=== PATIENT | female | born 1970 | race Caucasian/White ===

== ENCOUNTER 2022-09-23 12:15 | Emergency (ER) | payer OTHER, SELFPAY ==
[2022-09-23] VITALS (8 sets, daily range): BP systolic 118–130; BP diastolic 78–88; PULSE 86–104; RESP 13–20; TEMP 36.6; O2SAT 100
--- NOTE | ~2022-09-23 | CT_ITS ---
CT of the Abdomen and Pelvis: Indication: Abdominal pain Technique: 2.5 mm axial scans were obtained through the abdomen and pelvis following intravenous adm inistration of 100 cc of Omnipaque 350. Dose reduction technique was used on this scan by utilizing a utomated exposure control and iterative reconstruction technique. The dose-length product (DLP) was 9 37.03 mGy-cm. Findings: Scans through the lung bases are unremarkable. The liver, spleen, pancreas, gallbladder, adrenals and kidneys are within normal limits. No evidence of aortic aneurysm. No lymphadenopathy. There is wall thickening and pericolonic inflammatory stranding at the mid descending colon, consiste nt with acute diverticulitis. No abscess or free air. No bowel obstruction. Very small fat-containing umbilical hernia noted. Images through the pelvis were performed. Urinary bladder unremarkable. No pelvic mass seen. Small am ount of ascites. Impression: Acute diverticulitis of the mid descending colon. No abscess or free air. Reviewed, dictated and finalized at [facility]. Impression: Acute diverticulitis of the mid descending colon. No abscess or free air.
[2022-09-23 12:46] LABS: Basophils Absolute Auto 0.1 K/mm3 (0.0-0.1); Basophils Percent Auto 0.4 % (0.2-1.2); Eosinophils Absolute Auto 0.3 K/mm3 (0-0.3); Eosinophils Percent Auto 2.2 % (0-4.4); Hematocrit 42.6 % (37.0-47.0); Hemoglobin 14.4 g/dL (12.0-15.0); Immature Granulocyte Absolute 0.08 K/mm3 (0.00-0.031); Immature Granulocyte Percent A 0.6 % (0-0.5); Lymphocytes Absolute Auto 1.34 K/mm3 (0.9-3.2); Lymphocytes Percent Auto 9.3 % (18.3-44.2); Mean Corpuscular HGB Conc 33.8 g/dl (32-36); Mean Corpuscular Hemoglobin 29.5 pg (26-34); Mean Corpuscular Volume 87.3 fl (80-100); Mean Platelet Volume 9.7 fl (7.4-10.4); Monocytes Absolute Auto 1.2 K/mm3 (0.1-0.6); Monocytes Percent Auto 8.5 % (2.6-8.5); Neutrophils Absolute Auto 11.4 K/mm3 (1.3-6.7); Platelet Count Result 308 k/mm3 (150-375); Red Blood Count 4.88 M/mm3 (4.2-5.4); Red Cell Distribution Width 13.2 % (11.5-14.5); White Blood Count 14.4 K/mm3 (4.5-10.0)
[2022-09-23 12:51] LABS: Appearance Urine Clear (Clear); Bilirubin Urine Negative (Negative); Blood Urine Negative (Negative); Color Urine Yellow (Yellow); Glucose Urine UA Negative (Negative); Ketones Urine Negative (Negative); Leukocyte Esterase Ur Negative LEU/UL (Negative); Nitrate Urine Negative (Negative); Protein Urine Negative (Negative); Specific Grav Ur 1.012 (1.001-1.035); Urobilinogen Urine 0.2 mg/dL (<2.0); pH Urine 7.5 (5.0-9.0)
--- NOTE | 2022-09-23 12:55 | ED.ABDPAIN ---
HPI - Abdominal Pain General Chief Complaint: Abdominal Pain Stated Complaint: abdominal pain Time Seen by Provider: 09/23/22 12:45 History of Present Illness HPI narrative: Patient is a 52-year-old female with a history of hypothyroidism, hypertension presenting with abdominal pain. Patient states that for the last 3 to 4 days she has had left lower quadrant pain that radiates into her left flank. States that it has been worsening though the pain does seem to wax and wane. States that she has been persistently nauseated but has not vomited. Had a normal bowel movement last night. No melena or hematochezia. States that she has noticed flecks of blood when she urinates. She denies dysuria or change in urinary frequency. She denies fevers or chills, headache, cough, shortness of breath, chest pain. Related Data Allergies Allergy/AdvReac Type Severity Reaction Status Date / Time No Known Allergies Allergy Verified 09/23/22 12:25 Review of Systems Review of Systems: All systems reviewed & are unremarkable except as noted in HPI and below Exam Narrative: GENERAL: Nontoxic, no acute distress though she does appear uncomfortable, pleasant and cooperative HEAD: Normocephalic, atraumatic. EYES: PERRLA and EOMI. ENT: Nares clear, no rhinorrhea or epistaxis. Mucous membranes moist. NECK: Supple. CHEST: Clear to auscultation. No respiratory distress. HEART: Regular rate and rhythm. No murmur heard. Normal peripheral pulses. ABDOMEN: Soft, tender in left lower quadrant as well as left flank, no guarding or rebound EXTREMITIES: Normal range of motion. No edema. SKIN: Warm, dry, no rash. NEURO: No focal deficits. Alert and oriented x3. PSYCH: Normal mood and affect. Course Vital Signs Vital signs: Vital Signs Temperature 98 F 09/23/22 12:22 Pulse Rate 104 H 09/23/22 12:22 Respiratory Rate 16 09/23/22 12:22 Blood Pressure 128/78 09/23/22 12:22 Pulse Oximetry 100 09/23/22 12:22 Oxygen Delivery Room Air 09/23/22 12:22 Temperature 98 F 09/23/22 12:22 Pulse Rate 87 09/23/22 15:02 Respiratory Rate 20 09/23/22 15:02 Blood Pressure 129/78 09/23/22 14:46 Pulse Oximetry 100 09/23/22 15:02 Oxygen Delivery Room Air 09/23/22 12:22 MDM - Abdominal Pain MDM Narrative Medical decision making narrative: Patient is a 52-year-old female presenting with several days of left lower quadrant and left flank pain. Patient is slightly tachycardic, otherwise vitals are within normal limits. Exam is remarkable for the above. Plan for blood work, CT abdomen pelvis. We will start some fluids, pain control, nausea control. CT abdomen pelvis with acute diverticulitis involving the descending colon. No evidence of perforation or abscess. Blood work with leukocytosis. Electrolytes and renal function are normal. UA is unremarkable. On reevaluation, the patient states that her symptoms have significantly improved. Discussed the findings on the CT. Plan for p.o. challenge and a dose of Augmentin. Patient tolerated p.o. challenge well. Advised that she follow-up with her PCP as well as gastroenterology for colonoscopy once the diverticulitis has resolved. We will send her out with Augmentin, Zofran, [facility]. Appropriate return precautions given. Patient voiced understanding and is agreeable with plan. Discharged in stable condition. Differential Diagnosis Differential diagnosis: Likely abdominal pain, acute appendicitis, constipation, diverticulitis, gastroenteritis, pancreatitis and small bowel obstruction Medical Records Attestation: I reviewed the patient's medical records. Lab Data Attestation: I reviewed the patient's lab results. 09/23/22 12:38 09/23/22 12:38 Labs: Lab Results 09/23/22 Range/Units 12:38 WBC 14.4 H (4.5-10.0) K/mm3 RBC 4.88 (4.2-5.4) M/mm3 Hgb 14.4 (12.0-15.0) g/dL Hct 42.6 (37.0-47.0) % MCV 87.3 (80-100) fl MCH 29.5 (
[2022-09-23 12:57] LABS: Alanine Aminotransferase 24 U/L (6-35); Albumin Level 4.8 g/dL (3.5-5.1); Alkaline Phosphatase 99 U/L (38-126); Anion Gap 7 mmol/L (8-16); Aspartate Amino Transferase 33 U/L (14-36); Bilirubin,Total 1.8 mg/dL (0.2-1.3); Blood Urea Nitrogen 13 mg/dL (7-17); Carbon Dioxide 30 mmol/L (22-30); Chloride 99 mmol/L (98-107); Estimated CRCL calculation 93 ml/min; Estimated Glomerular Filt Rate > 60; Glucose 95 mg/dL (65-110); Lipase 90 U/L (23-300); Potassium 3.7 mmol/L (3.4-5.0); Sodium 136 mmol/L (137-145)
[2022-09-23 12:59] LABS: Add Urine Microscopic? NO
[2022-09-23] MEDS: SODIUM CHLORIDE 0.9% IV 1,000 ML 999 ML IV CONT (13:00)
[2022-09-23] MEDS: ONDANSETRON INJ 4 MG/2 ML VIAL IV PUSH (13:01)
[2022-09-23] MEDS: HYDROmorphone HCL INJ (*CRX) 1 MG/ML SYR IV PUSH (13:01)
[2022-09-23] MEDS: AMOXICILLIN/CLAVULANATE K 875-125 MG TAB 1 TABLET PO (14:13)
--- NOTE | 2022-09-23 14:17 | PC.NURSE ---
Pt giving jello for PO challenge at Request of MD Svetlana.
== END 2022-09-23 15:37 | disposition home or self-care (01) ==
PROVIDERS: Emergency Medicine; Emergency Provider Emergency Medicine
DX: K57.32 Diverticulitis of large intestine without perforation or abscess without bleeding (principal); E03.9 Hypothyroidism, unspecified; I10 Essential (primary) hypertension
CPT/HCPCS: 36415; 74177; 80053; 81003; 81025; 83690; 85025; 96361; 96374; 96375; 99284; A9270; J1170; J2405; J7030; Q9967